=== PATIENT | male | born 1995 | race Caucasian/White ===

== ENCOUNTER 2017-03-22 12:44 | Inpatient (IN) | payer BC, OTHER ==
[~2017-03-22] VITALS: Ht 175.3 cm; Wt 79.4 kg
[2017-03-22] MEDS ORDERED: LORAZEPAM 2 MG/1 ML VIAL IM PRN (16:30)
[2017-03-22] MEDS ORDERED: DIAZEPAM 10 MG TABLET PO PRN ×2 (16:30)
[2017-03-22] MEDS ORDERED: BUPRENORPHINE HCL 2 MG TAB.SUBL SL PRN (16:30)
[2017-03-22] MEDS ORDERED: ACETAMINOPHEN 325 MG TABLET PO PRN (16:30)
[2017-03-22] MEDS ORDERED: THIAMINE HCL 200 MG/2 ML VIAL IM ONE (16:30)
[2017-03-22] MEDS ORDERED: LOPERAMIDE HCL 2 MG CAPSULE PO PRN ×2 (16:30)
[2017-03-22] MEDS ORDERED: DICYCLOMINE HCL 20 MG TABLET PO PRN (16:30)
[2017-03-22] MEDS ORDERED: MAG HYDROX/AL HYDROX/SIMETH 30 ML LIQUID UDC PO PRN (16:30)
[2017-03-22] MEDS ORDERED: MIRALAX 17 GM POWD.PACK PO PRN (16:30)
[2017-03-22] MEDS ORDERED: IBUPROFEN 600 MG TABLET PO PRN (16:30)
[2017-03-22] MEDS ORDERED: MAGNESIUM HYDROXIDE 30 ML LIQUID UDC PO PRN (16:30)
[2017-03-22] MEDS ORDERED: DIAZEPAM 5 MG TABLET PO PRN (16:30)
[2017-03-22 17:01] VITALS: BP 120/77
--- NOTE | 2017-03-22 17:02 | NUR ---
Intake assessment Pt was seen in intake office, pt VS are stable, pt is AxOx4, pt is cleared to be taken up to unit. Pt has already been seen by Dr Marks, admissions orders have been placed.
--- NOTE | 2017-03-22 17:20 | NUR ---
Admission Note Admission note Pt is being admitted for benzo and ETOH dependence, crack and opiate abuse. Body search and luggage search completed, no contraband found. Pt ambulated on to unit with [employer], skin check completed, pt noted to have a closed large scabbed area to right forearm. Pt noted to stand 5'9'' tall and weighs 175 pounds. Educated regarding rules and policies on the unit, pt verbalized his understanding. Pt is on a regular diet, full code, allergic to Haldol. Pt VS upon admission are: BP: 120/70 HR 84 T: 97.6 SpO2 97% on RA. Pt has no complaints of pain. COWS of 9 CIWA of 16. Pt states that he has a PMH of anxiety, depression, and PTSD. Pt states that he has a psychiatrist and PCP but he does not know their names, pt states that he does not like to take psychiatric medications because they cause him to have suicidal thoughts. Pt denies any SI/HI at this time. Pt states that he has had two seizures from withdrawal, last one being about 3 years ago. Pt agrees to HIV testing and would like the pneumococcal vaccine in a few days, orders entered. Pt uses the following substances: ETOH- either 20 beers or a fifth, 750ml of vodka daily for "several months", last drank 4 beers on 03/22/17 in the morning. Benzo's: klonopin-30mg PO daily for "several months", last use 5mg PO 03/22/17, diclazepam- 100mg PO "every few days" x "several months" last use "a few days ago" . Crack- Pt states that he uses it "when available, about 3-4 times a week" unknown amounts, last used "a few days ago". Pt states that he uses via oral inhalation. Heroin- - Pt states that he uses it "when available, about 3-4 times a week" unknown amounts, last used "a few days ago". Pt states that he uses it via oral inhalation. Pt states that he has a history of uses the previous substances via IV use, but states that he hasn't been able to obtain needles. Pt states that this is his 7th time is detox and does not remember dates but has been to: [facility] twice, [facility] x 2 and then [facility]. States he relapsed immediately after his last detox "several months ago". Pt states that he was evicted from his apartment and that is his main motivation to seek treatment, states that he needs to "get clean". Pt requested to have his home acne cream available to him for when he is here, Dr Marks notified, stated ok for pt to use TID PRN, orders entered, MD unable to enter orders. Dr Marks aware of CIWA of 18. NNO. Pt oriented to unit, pt has no further questions at this time, will administer medications per MD order and continue to monitor pt. Pt is scheduled to start a phenobarbital taper today and subutex taper on 03/23/17.
[2017-03-22] MEDS: PHENOBARBITAL 60 MG TABLET PO SCH ×2 (17:45→21:08)
[2017-03-22 18:05] LABS: BASOPHILS % (AUTO) 0.3 % (0.0-2.0); EOSINOPHILS # (AUTO) 0.2 K/uL (0.0-0.7); EOSINOPHILS % (AUTO) 3.4 % (0.0-7.0); HEMATOCRIT 42.2 % (40-50); HEMOGLOBIN 14.1 G/DL (14.0-18.0); LYMPHOCYTES # (AUTO) 2.3 K/UL (0.8-4.8); LYMPHOCYTES % (AUTO) 39.4 % (20.5-51.5); MEAN CORPUSCULAR HEMOGLOBIN 29.3 UUG (27.0-31.0); MEAN CORPUSCULAR HGB CONC 34 g/dL (32.0-37.0); MEAN CORPUSCULAR VOLUME 87.6 FL (82.0-92.0); MONOCYTES # (AUTO) 0.5 K/UL (0.1-1.30); NEUTROPHILS # (AUTO) 2.9 K/UL (1.8-8.9); NEUTROPHILS % (AUTO) 47.9 % (38.5-71.5); PLATELET COUNT (AUTO) 276 K/UL (150-450); RED BLOOD CELL COUNT(AUTO) 4.82 MIL/UL (4.7-6.1); WHITE BLOOD COUNT (AUTO) 5.9 K/UL (4.0-11.2)
[2017-03-22] MEDS ORDERED: HOME MED MISCELLANEOUS TP PRN (18:15)
[2017-03-22 18:17] LABS: ALANINE AMINOTRANSFERASE 38 U/L (16-63); ALKALINE PHOSPHATASE 85 U/L (50-136); AMYLASE 36 U/L (25-115); ASPARTATE AMINOTRANSFERASE 36 U/L (15-37); BILIRUBIN,TOTAL 0.8 mg/dL (0.2-1.0); CARBON DIOXIDE 31 mmol/L (21-32); CHLORIDE 100 mmol/L (98-107); GLUCOSE 121 mg/dL (74-106); LIPASE 122 U/L (73-393); MAGNESIUM 2.1 mg/dL (1.8-2.4); POTASSIUM 4.1 mmol/L (3.5-5.1); TOTAL PROTEIN, SERUM 8.1 g/dL (6.4-8.2); UREA NITROGEN, BLOOD 15 mg/dL (7-18)
[2017-03-22 18:25] LABS: *AMPHETAMINE, URINE NEGATIVE (NEGATIVE); *BARBITURATE, URINE NEGATIVE (NEGATIVE); *CANNABINOID, URINE POSITIVE (NEGATIVE); *COCCAINE, URINE NEGATIVE (NEGATIVE); *OPIATE, URINE NEGATIVE (NEGATIVE); *PHENCYCLIDINE SCREEN,URINE NEGATIVE (NEGATIVE)
[2017-03-22] MEDS ORDERED: PATIENT MAY USE OWN MED- MD OK TOP PRN (18:45)
--- NOTE | 2017-03-22 19:10 | NUR ---
End of shift note SBAR report given to nurse. Pt was admitted for benzo dependence, ETOH dependence, opiate and stimulant abuse. Pt has a PMHx of anxiety, depression, PTSD. Pt is allergic to haldol, on a regular diet and is a full code. Pt has started his 7 day phenobarbital taper, and is scheduled to begin a 4 day subutex taper on 03/23/17. Pt also has PRN subutex and PRN valium available if needed to manage his s/s of withdrawal. All needs addressed at this time.
[2017-03-22 19:11] LABS: ETHANOL < 3 MG/DL (0-0)
[2017-03-22 19:15] LABS: THYROID STIMULATING HORMONE 4.348 mIU/mL (0.358-3.740)
--- NOTE | 2017-03-22 19:15 | NUR ---
Start of Shift Patient Received. Patient is in his room sleeping. Breathing even and non labored. Patient is arousable to verbal stimuli. Patient is a 21 year old amle, admitted 03/22/17 for Benzo and ETOH Dependence, under the care of Dr. Marks. Patient is currently placed on a 7 day Phenobarbital taper and a 4 day Subutex taper. Patient verbalizes allergies to Haldol, wishes to be full code, following a regular diet, placed on fall and seizure precautions. Skin is noted with large scab to Right forearm. Per endorsement, patient was given Phenobarbital 60mg for CIWA of 18. COWS of 9 noted upon admission. Will continue plan of care as ordered.
[2017-03-22 21:02] VITALS: BP 114/65
[2017-03-22] MEDS: GABAPENTIN 300 MG CAPSULE PO SCH (21:07)
[2017-03-22 23:28] VITALS: BP 114/61
[2017-03-22] MEDS: diphenhydrAMINE 50 MG CAPSULE PO PRN (23:32)
--- NOTE | 2017-03-22 23:35 | NUR ---
PRN Medication Administration Patient noted verbalizing increased nausea, noted to be tremulous, and verbalizing increased anxiety, resulting inability of falling asleep. CIWA noted 5 and COWS noted to be 5. PRN Valium 5mg and Benadryl administered per orders. All needs attended to promptly. Will continue to monitor.
[2017-03-23] VITALS (8 sets, daily range): BP systolic 103–116; BP diastolic 55–76
--- NOTE | 2017-03-23 00:30 | NUR ---
PRN Medication Reassessment Patient noted in bed sleeping. breathing even and non labored. No signs of facial grimacing noted. Patient was given PRN Valium 5mg and Benadryl. Patients respirations noted to be 14. patient continues to rest with no interruptions. PRN Medications noted to bed effective. Will continue to monitor.
--- NOTE | 2017-03-23 07:02 | NUR ---
End of Shift Patient is in his room sleeping. Breathing even and non labored. Patient is arousable to verbal stimuli. Patient is a 21 year old male, admitted 03/22/17 for Benzo and ETOH Dependence, under the care of Dr. Marks. Patient is currently placed on a 7 day Phenobarbital taper and a 4 day Subutex taper. Patient was placed on Subutex take for intermitted Heroin use. Patient verbalizes allergies to Haldol, wishes to be full code, following a regular diet, placed on fall and seizure precautions. Skin is noted with large scab to Right forearm. Patient was given PRN Benadryl and Valium 5mg for a CIWA of 5 with medications noted to be effective. Patient noted to sleep a total of 8 hours. All needs attended to promptly. Will endorse to continue plan of care as ordered.
--- NOTE | 2017-03-23 08:05 | NUR ---
START OF SHIFT Received patient this morning alert and oriented x4. Patient requesting nurse and states he feels really anxious and sick. He presents with tremors, anxiety, and reports body aches. He is on 7 day Phenobarb/4 day Subutex taper. History of seizures. He is placed on seizure precautions. PRN Valium given per night nurse with effectiveness. Patient slept 8 hours. COWS 13 CIWA 13 at 0800 this morning. Will administer morning medications to help manage s/s of w/d. Encouraged patient to drink increased amounts of fluids this shift. Encouraged attendance of groups and activities. Will provide safe and supportive environment. Informed patient to notify RN if s/s of w/d worsen. Will continue to monitor.
[2017-03-23] MEDS: DOCUSATE SODIUM 250 MG CAPSULE PO SCH (08:16)
[2017-03-23] MEDS: THIAMINE HCL 100 MG TABLET PO SCH (08:16)
[2017-03-23] MEDS: FOLIC ACID 1 MG TABLET PO SCH (08:17)
[2017-03-23] MEDS: PHENOBARBITAL 60 MG TABLET PO SCH ×4 (08:17→20:05)
[2017-03-23] MEDS: BUPRENORPHINE HCL 2 MG TAB.SUBL SL SCH ×2 (08:17→20:05)
[2017-03-23] MEDS: MULTIVITAMINS,THERAPEUTIC TABLET PO SCH (08:17)
[2017-03-23] MEDS: GABAPENTIN 300 MG CAPSULE PO SCH ×3 (08:17→20:05)
[2017-03-23] MEDS ORDERED: TUBERCULIN,PURIF.PROT.DERIV. 5 TU/0.1 ML TEST ID ONE (09:00)
--- NOTE | 2017-03-23 11:01 | NUR ---
PRN MEDS PRN Valium given for CIWA 14. Patient c/o anxiety, tremors, mild hallucinations. Patient denies S/I and H/I. Doctor Kendrick notified. Will reassess.
--- NOTE | 2017-03-23 11:35 | NUR ---
PRN REASSESSMENT Patient states he feels a little less anxious now. CIWA 10. Medications slightly effective. Will administer 1300 medications at 1200. Will continue to monitor
[2017-03-23] MEDS ORDERED: DIAZEPAM 10 MG TABLET PO PRN (13:00)
[2017-03-23] MEDS ORDERED: BUPRENORPHINE HCL 2 MG TAB.SUBL SL PRN (13:00)
[2017-03-23] MEDS ORDERED: DIAZEPAM 5 MG TABLET PO PRN (13:00)
[2017-03-23] MEDS: METHOCARBAMOL 750 MG TABLET PO PRN (13:49)
--- NOTE | 2017-03-23 13:49 | NUR ---
PRN MEDICATIONS PRN Robaxin for body aches and restlessness. 7/10 on pain scale
--- NOTE | 2017-03-23 14:20 | NUR ---
PRN REASSESSMENT Patient states body aches are a 6/10. Will administer 1500 medications
--- NOTE | 2017-03-23 15:08 | NUR ---
PRN MEDICATIONS 20 mg Valium given. CIWA 20. Pt is aox4. Doctor Kendrick notified. will reassess
--- NOTE | 2017-03-23 15:50 | NUR ---
PRN REASSESSMENT Patient noted to be asleep with RR even and unlabored at 17. Bed locked and in lowest position and call jones within reach. Will reassess COWS when patient awakens. Will monitor frequently. Addendum: 03/23/17 at 1648 by NIKOLAI MASSEY RN TOMY 9
--- NOTE | 2017-03-23 18:33 | NUR ---
END OF SHIFT NOTE Patient continues on 7 day Phenobarbital/ 4 day Subutex taper and tolerating well. PRN Valium x2 and Robaxin given during shift. Patient had mild hallucinations during shift with Md aware. Last COWS 9 CIWA 4. Patient presented anxious during shift and tremulous. Patient increased fluid intake as encouraged. TB test administered during shift. All needs have been met. Safety measures in place. Will endorse to oncoming nurse
--- NOTE | 2017-03-23 19:20 | NUR ---
Start of Shift Patient Received. Patient noted in hallway on his way out to the smoking patio for smoking break. Patient is a 21 year old male, admitted 03/22/17 for Benzo and ETOH Dependence, under the care of Dr. Marks. Patient is currently placed on a 7 day Phenobarbital taper and a 4 day Subutex taper. Patient verbalizes allergies to Haldol, wishes to be full code, following a regular diet, placed on fall and seizure precautions. Skin is noted with large scab to Right forearm. Per endorsement, patient was given PRN Robaxin and Valium 10mg. Patient was noted with a CIWA of 20 and also noted with auditory hallucinations. PRN Valium 20mg. Medication noted to be effective. At 1600 patients CIWA noted to be 9 and COWS noted to 5. All needs attended to promptly. Will continue plan of care as ordered.
[2017-03-23] MEDS: diphenhydrAMINE 50 MG CAPSULE PO PRN (22:10)
[2017-03-23] MEDS: DIAZEPAM 10 MG TABLET PO PRN (22:10)
--- NOTE | 2017-03-23 22:10 | NUR ---
PRN Medication Administration Patient verbalizing increased anxiety, intermitted nausea, tremulous, and noted to be flushed in the face. Patient also noted verbalizing inability of falling asleep. Patients CIWA noted to be 12 and COWS to be 10. PRN Valium 10mg and Benadryl administered as per orders. Will continue to monitor.
--- NOTE | 2017-03-23 23:44 | NUR ---
PRN Medication Reassessment Patient noted in bed, watching TV. Breathing even and non labored. Patient was given PRN Valium 10mg and Benadryl. Patient is able to verbalize the medication was able to help with the sweats and the shakes. I dont feel as tense anymore. Im going to try and go to bed soon. PRN Valium and Benadryl noted to be effective. Will continue to monitor.
[2017-03-24 00:25] VITALS: BP 104/68
[2017-03-24 04:15] VITALS: BP 101/66
--- NOTE | 2017-03-24 07:07 | NUR ---
End of Shift Patient is in his room sleeping. Breathing even and non labored. Patient is a 21 year old male, admitted 03/22/17 for Benzo and ETOH Dependence, under the care of Dr. Marks. Patient is currently placed on a 7 day Phenobarbital taper and a 4 day Subutex taper. Patient was placed on Subutex take for intermitted Heroin use. Patient verbalizes allergies to Haldol, full code, regular diet, placed on fall and seizure precautions. Skin is noted with large scab to Right forearm. Patient was given PRN Benadryl and Valium 10mg for a CIWA of 10 with medications noted to be effective. Patient noted to sleep a total of 6 hours. All needs attended to promptly. Will endorse to continue plan of care as ordered.
[2017-03-24 08:00] VITALS: BP_SYST 113
--- NOTE | 2017-03-24 08:00 | NUR ---
START OF SHIFT Received endorsement from ongoing nurse, client is coming back from patio alert/oriented to name, place and time. Client states he feels really anxious and sick. He presents with anxious mood, flat affect, increased P 116. He is on 7 day Phenobarbital/4 day Subutex taper. History of seizures. He is placed on seizure precautions. PRN Valium given per night nurse with effectiveness. Patient slept 6 hours. COWS 9/ CIWA 7 at 0800 this morning. Will administer morning medications to help manage s/s of w/d. Encouraged patient to drink increased amounts of fluids to facilitate detox. Encouraged attendance of groups for skills to maintain sobriety. Call light within reach Will continue to monitor.
[2017-03-24] MEDS: BUPRENORPHINE HCL 2 MG TAB.SUBL SL SCH ×3 (08:15→20:33)
[2017-03-24] MEDS: THIAMINE HCL 100 MG TABLET PO SCH (08:15)
[2017-03-24] MEDS: FOLIC ACID 1 MG TABLET PO SCH (08:15)
[2017-03-24] MEDS: DOCUSATE SODIUM 250 MG CAPSULE PO SCH (08:15)
[2017-03-24] MEDS: GABAPENTIN 300 MG CAPSULE PO SCH ×3 (08:15→20:32)
[2017-03-24] MEDS: MULTIVITAMINS,THERAPEUTIC TABLET PO SCH (08:15)
[2017-03-24] MEDS: PHENOBARBITAL 60 MG TABLET PO SCH ×3 (08:15→20:32)
--- NOTE | 2017-03-24 08:49 | NUR ---
Clinician met with the client and encouraged him to attend groups. Group times were explained. Client reported that he was detoxing and didn't want to do groups in detox but said he would consider coming tomorrow.
[2017-03-24] MEDS: DIAZEPAM 10 MG TABLET PO PRN (10:07)
--- NOTE | 2017-03-24 10:07 | NUR ---
PRN Valium 10mg Client presents with anxiety, he is crying, stating "I just want to go out and start using again." Client continue to open and close fist. P 88, HR 115/67 CIWA 9. Valium 10mg PO administered. will continue to monitor.
--- NOTE | 2017-03-24 10:08 | NUR ---
PRN Miralax for constipation, encourage client to increase fluid intake and activity as tolerated to promote a BM, he verbalized understanding.
--- NOTE | 2017-03-24 11:07 | NUR ---
Reassessment PRN Valium 10mg Client is back in room from smoking, he states "I feel less anxious, but now I have some nausea." Client CIWA 5. Encourage client to try nicotine gum or patch, he decline at this time. Valium 10mg effective. Will continue to monitor.
--- NOTE | 2017-03-24 11:08 | NUR ---
Reassessment of Miralax client reports no BM at this time, will continue to monitor.
--- NOTE | 2017-03-24 11:21 | NUR ---
Dr. Marks made aware of lab value TSH 4.348
[2017-03-24 12:55] VITALS: BP 103/61
[2017-03-24] MEDS ORDERED: DIAZEPAM 10 MG TABLET PO PRN (14:00)
[2017-03-24] MEDS ORDERED: DIAZEPAM 5 MG TABLET PO PRN (14:00)
--- NOTE | 2017-03-24 14:06 | NUR ---
Client presents with behavioral issues, he pretended to take Phenobarbital 60 mg, primary nurse request client to stand up from bed, nurse checked blankets and phenobarbital 60mg tab was in between the sheets, primary removed pill and call via radio to charge nurse as witness. Primary nurse encourage compliance with taper medication, client stated, "I was just going to save it for when I needed it." Primary stayed with client 15 minutes after swallowing pill. Charge nurse notified MD and request T will do a room search.
[2017-03-24 17:00] VITALS: BP 114/64
--- NOTE | 2017-03-24 19:30 | NUR ---
END OF SHIFT Patient continues on 7 day Phenobarbital/ 4 day Subutex taper and tolerating well. PRN Valium x2 and Robaxin given during shift. Patient had mild hallucinations during shift with Md aware. Last COWS 9 CIWA 4. Patient presented anxious during shift and tremulous. Patient increased fluid intake as encouraged. TB test administered during shift. All needs have been met. Safety measures in place. Will endorse to oncoming nurse
[2017-03-24 20:00] VITALS: BP 106/64
--- NOTE | 2017-03-24 20:05 | NUR ---
START OF SHIFT Received report from day shift nurse. Pt attended a group meeting and returned to his room after. He is a 21 yo male admitted to [facility] on 03/22 for BZD, ETOH, suboxone, and opiate dependence. He is A&O x4 and ambulatory. Allergic to haldol, full code status, and on a regular diet. He has a PMH of anxiety, depression, PTSD, and seizures. On admission he reported using klonopin 30mg per day, diclazepam 100mg every few days, ETOH 20 beers or 750mL vodka per day, crack and heroin every few days, and subutex 8mg per day. Pt started a 7 day Phenobarbital taper on 03/22 and 4 day subutex taper on 03/23. Pt presents with flushed face, visible sweat, anxiety, body aches, nausea, mild tremors. He has a flat affect. Tapers due tonight. Fall and seizure precautions in place. Bed is down with call light in reach.
[2017-03-24] MEDS: ONDANSETRON ODT 4 MG TAB.RAPDIS SL PRN (20:31)
[2017-03-24] MEDS: METHOCARBAMOL 750 MG TABLET PO PRN (20:32)
[2017-03-24] MEDS: diphenhydrAMINE 50 MG CAPSULE PO PRN (20:32)
--- NOTE | 2017-03-24 20:33 | NUR ---
PRN Robaxin administration Pt c/o generalized body aches 03/16. PRN Robaxin administered. Addendum: 03/26/17 at 0326 by AVRIL GABRIEL RN Disregard note. Incorrect entry date.
--- NOTE | 2017-03-24 20:33 | NUR ---
PRN Zofran, Robaxin, and Benadryl Pt c/o nausea, body aches, bone pain, and inability to sleep. PRN Zofran, Robaxin, and Benadryl administered.
--- NOTE | 2017-03-24 21:33 | NUR ---
PRN Zofran, Robaxin, and Benadryl reassessment PRN Zofran and Robaxin effective. Pt reports relief of nausea. Body aches and bone pain are reduced to 3/10. He states that he feels tired and is going to bed after washing his face.
[2017-03-25] VITALS: BP 101/44
--- NOTE | 2017-03-25 00:40 | NUR ---
PRN Ativan, Motrin, and Zofran Pt reports feeling anxious, with nausea, headache, and inability to relax. Last used xanax last night. COWS 5 and CIWA 7. PRN Ativan, Motrin, and Zofran administered. Addendum: 03/25/17 at 0617 by AVRIL GABRIEL RN Disregard note. Incorrect patient.
--- NOTE | 2017-03-25 01:40 | NUR ---
PRN Ativan, Motrin, and Zofran reassessment PRN Ativan, Motrin, and Zofran effective. Pt is lying comfortably in bed resting with eyes closed. Respirations even and unlabored. Safety measures in place. Addendum: 03/25/17 at 0618 by AVRIL GABRIEL RN Disregard note. Incorrect patient.
[2017-03-25 04:30] VITALS: BP 108/63
[2017-03-25] MEDS: HYDROXYZINE PAMOATE 25 MG CAPSULE PO PRN (05:28)
[2017-03-25] MEDS: DIAZEPAM 10 MG TABLET PO PRN ×2 (05:28→09:59)
[2017-03-25] MEDS: ONDANSETRON ODT 4 MG TAB.RAPDIS SL PRN (05:47)
--- NOTE | 2017-03-25 05:47 | NUR ---
PRN Valium, Vistaril, and Zofran Pt woke up and is tearful, with facial flushing, and mild full body tremors. He reports that he is hearing voices and having nausea. Pt denies SI/HI. COWS 10 and CIWA 13. Provided calming reassurance. PRN Valium, Vistaril, and Zofran administered. Safety measures in place.
--- NOTE | 2017-03-25 06:47 | NUR ---
PRN Valium, Zofran, and Vistaril reassessment Pt reports relief of symptoms. He no longer is having auditory hallucinations. Nausea is relieved. He continues to have mild hand tremors. COWS 6 and CIWA 4.
--- NOTE | 2017-03-25 07:20 | NUR ---
END OF SHIFT Report provided to day shift nurse. Pt is lying in bed resting. He is a 21 yo male admitted to [facility] on 03/22 for BZD, ETOH, suboxone, and opiate dependence. He is A&O x4 and ambulatory. Allergic to haldol, full code status, and on a regular diet. He has a PMH of anxiety, depression, PTSD, and seizures. On admission he reported using klonopin 30mg per day, diclazepam 100mg every few days, ETOH 20 beers or 750mL vodka per day, crack and heroin every few days, and subutex 8mg per day. 7 day Phenobarbital taper started on 03/22 and 4 day subutex taper started on 03/23. PRN Zofran, Benadryl, and Robaxin administered before bed. He woke up early in the morning with reports of auditory hallucinations. PRN Valium and Vistaril administered. Symptoms improved. Last COWS 6 and CIWA 4. He no longer is experiencing auditory hallucination.. He drank 855mL and slept for 5 hours. Fall and seizure precautions in place. Bed is down with call light in reach.
--- NOTE | 2017-03-25 07:39 | NUR ---
START OF SHIFT NOTE patient is alert and Orientated X 4. He is laying in bed awake. Respirations even and unlabored. Patient slpet 5 hours according to night nurse. vital signs WNL. patient stated, "he was anxious last night and shaky". All safety measures in place, call light within reach, bed locked and in lowest position. WIll continue to monitor patient.
[2017-03-25 08:00] VITALS: BP 101/72
[2017-03-25] MEDS: GABAPENTIN 300 MG CAPSULE PO SCH ×3 (08:56→21:20)
[2017-03-25] MEDS: DOCUSATE SODIUM 250 MG CAPSULE PO SCH (08:56)
[2017-03-25] MEDS: THIAMINE HCL 100 MG TABLET PO SCH (08:57)
[2017-03-25] MEDS: PHENOBARBITAL 60 MG TABLET PO SCH ×4 (08:57→21:20)
[2017-03-25] MEDS: FOLIC ACID 1 MG TABLET PO SCH (08:57)
[2017-03-25] MEDS: MULTIVITAMINS,THERAPEUTIC TABLET PO SCH (08:58)
[2017-03-25] MEDS ORDERED: PNEUMOCOCCAL 23-VAL P-SAC VAC 0.5 ML VIAL IM ONE (09:00)
[2017-03-25] MEDS ORDERED: BUPRENORPHINE HCL 2 MG TAB.SUBL SL SCH (09:00)
--- NOTE | 2017-03-25 10:03 | NUR ---
PRN MEDICATION Patient expressed he has increased in anxiety. Unable to sit still. Last COWS 12. Gave 10 mg Valium. Will continue to monitor and reassess shortly.
--- NOTE | 2017-03-25 10:33 | NUR ---
PRN REASSESSMENT Patient is laying in bed sleeping. Respirations are even and unlabored. PRN Valium 10 mg shows to be effective.
[2017-03-25 12:00] VITALS: BP 102/55
[2017-03-25 14:08] LABS: HEPATITIS B SURFACE AG Negative (Negative)
[2017-03-25] MEDS: BUPRENORPHINE HCL 2 MG TAB.SUBL SL SCH ×2 (14:47→21:20)
--- NOTE | 2017-03-25 18:52 | NUR ---
END OF SHIFT NOTE Patient is a 21 year old male. Alert and orientated X4. Vitals have remained stable throughout the day. Last COWS 7 CIWA 8. Patient was given 10 mg of Valium for increased anxiety, PRN med was effective. Patient is on a phenobarb 7 day taper and 4 day Subutex taper; tolerated well. Patient has socialized around the unit today and attended group. All safety measures are in place; call light within reach, bed locked and in lowest position. All needs have been met. Will endorse to oncoming night nurse.
[2017-03-25 20:00] VITALS: BP 105/74
--- NOTE | 2017-03-25 20:05 | NUR ---
START OF SHIFT Received report from day shift nurse. Pt attended a group meeting and returned to his room after. He is a 21 yo male admitted to [facility] on 03/22 for BZD, ETOH, suboxone, and opiate dependence. He is A&O x4 and ambulatory. Allergic to haldol, full code status, and on a regular diet. He has a PMH of anxiety, depression, PTSD, and seizures. On admission he reported using klonopin 30mg per day, diclazepam 100mg every few days, ETOH 20 beers or 750mL vodka per day, crack and heroin every few days, and subutex 8mg per day. Pt started a 7 day Phenobarbital taper on 03/22 and 4 day subutex taper on 03/23. Pt presents with chills, a flat affect, flushed face, and anxiety. Pt denies visual of auditory hallucinations. He also denies SI/HI. Tapers due tonight. Fall and seizure precautions in place. Bed is down with call light in reach.
--- NOTE | 2017-03-25 20:33 | NUR ---
PRN Robaxin administration Pt c/o generalized body aches 03/16. PRN Robaxin administered.
--- NOTE | 2017-03-25 21:33 | NUR ---
PRN Robaxin reassessment PRN Robaxin effective. Pt reports relief of generalized body aches.
[2017-03-25] MEDS: TEMAZEPAM 15 MG CAPSULE PO PRN (22:47)
--- NOTE | 2017-03-25 22:48 | NUR ---
PRN Restoril administered Pt c/o inability to fall asleep and requested Restoril. Encouraged relaxation. PRN Restoril administered.
--- NOTE | 2017-03-25 23:48 | NUR ---
PRN Restoril reassessment PRN Restoril effective. Pt is lying in bed resting with eyes closed. Respirations even and unlabored. Safety measures in place.
[2017-03-26] VITALS: BP 108/62
--- NOTE | 2017-03-26 04:00 | NUR ---
0400 Vitals refused. COWS and DEANNAWA deferred Pt refused to be woken for 0400 vitals. He is lying comfortably in bed resting. Respirations even and unlabored. COWS and DEANNAWA ordered Q4HWA.
--- NOTE | 2017-03-26 07:20 | NUR ---
END OF SHIFT Report provided to day shift nurse. Pt is lying in bed resting. He is a 21 yo male admitted to [facility] on 03/22 for BZD, ETOH, suboxone, and opiate dependence. He is A&O x4 and ambulatory. Allergic to haldol, full code status, and on a regular diet. He has a PMH of anxiety, depression, PTSD, and seizures. On admission he reported using klonopin 30mg per day, diclazepam 100mg every few days, ETOH 20 beers or 750mL vodka per day, crack and heroin every few days, and subutex 8mg per day. Pt started a 7 day Phenobarbital taper on 03/22 and 4 day subutex taper on 03/23. PRN Robaxin and Restoril administered. Last COWS 4 and CIWA 3. He drank 1355mL and slept for 7 hours. Tapers due tonight. Fall and seizure precautions in place. Bed is down with call light in reach.
--- NOTE | 2017-03-26 07:50 | NUR ---
START OF SHIFT Received patient this morning alert and oriented x4. Patient just got out of the showe and states his bones hurt, but his mood is better and he feels a lot better than he has. He is on 7 day Phenobarb/4 day Subutex taper. History of seizures. He is placed on seizure precautions. PRN Restoril and Robaxin given per night nurse with effectiveness. Patient slept 7 hours. Last COWS 4 CIWA 3 per night nurse. Encouraged patient to drink increased amounts of fluids this shift. Encouraged attendance of groups and activities. Will provide safe and supportive environment. Informed patient to notify RN if s/s of w/d worsen. Will continue to monitor.
[2017-03-26 08:00] VITALS: BP 91/61
[2017-03-26] MEDS: FOLIC ACID 1 MG TABLET PO SCH (08:23)
[2017-03-26] MEDS: DOCUSATE SODIUM 250 MG CAPSULE PO SCH (08:23)
[2017-03-26] MEDS: MULTIVITAMINS,THERAPEUTIC TABLET PO SCH (08:23)
[2017-03-26] MEDS: BUPRENORPHINE HCL 2 MG TAB.SUBL SL SCH ×2 (08:23→16:05)
[2017-03-26] MEDS: GABAPENTIN 300 MG CAPSULE PO SCH ×3 (08:23→21:00)
[2017-03-26] MEDS: PHENOBARBITAL 60 MG TABLET PO SCH ×3 (08:24→21:00)
[2017-03-26] MEDS: THIAMINE HCL 100 MG TABLET PO SCH (08:24)
[2017-03-26] MEDS ORDERED: BUPRENORPHINE HCL 2 MG TAB.SUBL SL SCH (09:00)
[2017-03-26 12:00] VITALS: BP 111/70
[2017-03-26 16:00] VITALS: BP 120/62
[2017-03-26] MEDS ORDERED: MAGNESIUM CITRATE 296 ML BOTTLE PO ONE (17:30)
--- NOTE | 2017-03-26 18:43 | NUR ---
END OF SHIFT NOTE Patient continues on 7 day Phenobarbital/ 4 day Subutex taper and tolerating well. No PRNS administered during shift as detox meds are effective. Patient presents with brighter mood and congruent affect and reports feeling much better. Last COWS 5 CIWA 6. Patient attended groups and activities and socialized with peers. Patient increased fluid intake as encouraged. TB test administered during shift. All needs have been met. Safety measures in place. Will endorse to oncoming nurse. Addendum: 03/26/17 at 1904 by NIKOLAI MASSEY RN patient had successful BM after mag citrate
[2017-03-26 20:00] VITALS: BP 118/70
--- NOTE | 2017-03-26 20:05 | NUR ---
START OF SHIFT Received report from day shift nurse. Pt attended a group meeting and returned to his room after. He is a 21 yo male admitted to [facility] on 03/22 for BZD, ETOH, suboxone, and opiate dependence. He is A&O x4 and ambulatory. Allergic to haldol, full code status, and on a regular diet. He has a PMH of anxiety, depression, PTSD, and seizures. On admission he reported using klonopin 30mg per day, diclazepam 100mg every few days, ETOH 20 beers or 750mL vodka per day, crack and heroin every few days, and subutex 8mg per day. Pt was started a 7 day Phenobarbital taper on 03/22 and 4 day subutex taper on 03/23. He presents with generalized body aches, flushed face, visible sweat on the nose, and anxiety. Fall and seizure precautions in place. Bed is down with call light in reach.
[2017-03-26 22:10] VITALS: BP 106/68
[2017-03-26] MEDS: TEMAZEPAM 15 MG CAPSULE PO PRN (22:17)
--- NOTE | 2017-03-26 22:18 | NUR ---
PRN Restoril administration Pt reports inability to sleep. Encouraged non-pharmacological interventions and pt still cannot sleep. B/P 106/68, HR 98, RR 16, O2 sat 99%. PRN Restoril administered.
--- NOTE | 2017-03-26 23:18 | NUR ---
PRN Restoril reassessment PRN Restoril effective. Pt is lying in bed resting with eyes closed. Respirations even and unlabored. Safety measures in place.
[2017-03-27] VITALS: BP 122/55
--- NOTE | 2017-03-27 04:00 | NUR ---
0400 Vitals refused. 0400 COWS and CIWA deferred. Pt refused to be woken for 0400 vitals. Pt is lying comfortably in bed. Respirations even and unlabored. COWS and CIWA ordered Q4HWA. Safety measures in place.
--- NOTE | 2017-03-27 07:22 | NUR ---
END OF SHIFT Report provided to day shift nurse. Pt attended a group meeting and returned to his room after. He is a 21 yo male admitted to [facility] on 03/22 for BZD, ETOH, suboxone, and opiate dependence. He is A&O x4 and ambulatory. Allergic to haldol, full code status, and on a regular diet. He has a PMH of anxiety, depression, PTSD, and seizures. On admission he reported using klonopin 30mg per day, diclazepam 100mg every few days, ETOH 20 beers or 750mL vodka per day, crack and heroin every few days, and subutex 8mg per day. Pt was started a 7 day Phenobarbital taper on 03/22 and 4 day subutex taper on 03/23. PRN Restoril administered. Last COWS 2 and CIWA 2. He drank 1296mL and slept for 7 hours. Fall and seizure precautions in place. Bed is down with call light in reach.
--- NOTE | 2017-03-27 07:47 | NUR ---
START OF SHIFT Received patient this morning alert and oriented x4. Patient just woke up and reports feeling much better. He presents with brighter affect. He continues on 7 day Phenobarb and completed 4 day Subutex taper. History of seizures. He is placed on seizure precautions. PRN Restoril given per night nurse with effectiveness. Patient slept 7 hours. Last COWS 2 CIWA 2 per night nurse. Encouraged patient to drink increased amounts of fluids this shift. Encouraged attendance of groups and activities. Will provide safe and supportive environment. Informed patient to notify RN if s/s of w/d worsen. Will continue to monitor.
[2017-03-27 08:00] VITALS: BP 109/63
[2017-03-27] MEDS: GABAPENTIN 300 MG CAPSULE PO SCH ×3 (08:57→20:55)
[2017-03-27] MEDS: DOCUSATE SODIUM 250 MG CAPSULE PO SCH (08:57)
[2017-03-27] MEDS: FOLIC ACID 1 MG TABLET PO SCH (08:57)
[2017-03-27] MEDS: PHENOBARBITAL 60 MG TABLET PO SCH ×2 (08:57→20:55)
[2017-03-27] MEDS: THIAMINE HCL 100 MG TABLET PO SCH (08:57)
[2017-03-27] MEDS: MULTIVITAMINS,THERAPEUTIC TABLET PO SCH (08:57)
[2017-03-27] MEDS ORDERED: BUPRENORPHINE HCL 2 MG TAB.SUBL SL SCH (09:00)
[2017-03-27] MEDS ORDERED: NEOMY/BACITRA/POLYMYXIN B OINT UD PACKET TP SCH (09:00)
[2017-03-27] MEDS: NEOMY/BACITRAC/POLYMI OINT 28.35 GM TUBE TOP SCH ×2 (11:56→16:09)
[2017-03-27 12:00] VITALS: BP 104/71
[2017-03-27] MEDS: HYDROXYZINE PAMOATE 25 MG CAPSULE PO PRN (15:19)
--- NOTE | 2017-03-27 15:20 | NUR ---
PRN MEDICATIONS VISTARIL GIVEN PER PT REQUEST FOR ANXIETY. WILL REASSESS
[2017-03-27 16:00] VITALS: BP 96/54
--- NOTE | 2017-03-27 16:12 | NUR ---
PRN REASSESSMENT PATIENT SLEEPING IN BED RR EVEN AND UNLABORED 17. NO SIGNS OF DISTRESS. BED LOCKED CALL ASH IN REACH
--- NOTE | 2017-03-27 18:34 | NUR ---
END OF SHIFT NOTE Patient continues on 7 day Phenobarbital and tolerating well. He completed 4 day Subutex taper. PRN Vistaril given for c/o anxiety. Patient has abx treatment for minor wound on right forearm. Patient presents with brighter mood. He reports feeling much better. Last COWS 2 CIWA 2. Patient attended groups and activities and socialized with peers. Patient increased fluid intake as encouraged. All needs have been met. Safety measures in place. Will endorse to oncoming nurse.
--- NOTE | 2017-03-27 19:05 | NUR ---
Start of Shift Patient Received. Patient is in activities room participating in group meeting. Patient is a 21 year old male, admitted on 03/22/17 for Benzo, ETOH, and Opiate Dependence under the care of Dr. Marks. Patient received a modified 4 day Subutex taper and 7 day Phenobarbital taper. Patient has completed 4 day Subutex taper and continues on 7 day Phenobarbital taper. Patient verbalized allergies to Haldol, wishes to be full code, following a regular diet, placed on fall and seizure precautions, and skin is noted with a scab to the right forearm. No signs of infection noted. Patients past medical history noted as Anxiety, Depression, and PTSD, with history of two seizures 3 years ago. Per endorsement, patient was given PRN Vistaril for increased anxiety with medication noted to be effective. Last noted CIWA noted as 2 and COWS noted as 2. All needs attended to promptly. Will continue plan of care as ordered.
[2017-03-27 20:41] VITALS: BP 115/72
[2017-03-27] MEDS: TEMAZEPAM 15 MG CAPSULE PO PRN (21:32)
--- NOTE | 2017-03-27 21:32 | NUR ---
PRN Medication Administration Patient verbalizes inability of falling asleep. All non pharmacological interventions noted ineffective. Patient still noted not able to fall asleep. PRN Restoril administered as per order. Will continue to monitor effectiveness.
--- NOTE | 2017-03-27 22:30 | NUR ---
PRN Restoril reassessment Patient is noted in bed sleeping. Breathing even and non labored. No signs of pain or discomfort noted. Patient given PRN Restoril with medication noted to be effective. Patient respirations noted to be 14. Patient continues to sleep with no interruptions.
[2017-03-28 00:20] VITALS: BP 101/58
--- NOTE | 2017-03-28 00:59 | NUR ---
CIWA and COWS Deferred Patient noted in bed sleeping. breathing even and non labored. CIWA and COWS deferred due to orders of Q4HWA. No pain or discomfort noted. patient continues to sleep well with no interruptions noted. Will continue to monitor. Addendum: 03/28/17 at 0059 by RONNA WESTBROOK LVN Amended: Links added.
[2017-03-28 04:15] VITALS: BP 110/58
--- NOTE | 2017-03-28 04:15 | NUR ---
COWS and CIWA Deferred Patient is in bed sleeping. Breathing even and non labored. No signs of pain or discomfort noted. CIWA and COWS deferred due to Q4HWA. Patient respirations noted at 14. Will continue to monitor. Addendum: 03/28/17 at 0521 by RONNA WESTBROOK LVN Amended: Links added.
--- NOTE | 2017-03-28 07:24 | NUR ---
End of Shift Patient is in bed sleeping. Breathing even and non labored. No signs of pain or discomfort noted. Patient is a 21 year old male, admitted on 03/22/17 for Benzo, ETOH, and Opiate Dependence under the care of Dr. Marks. Patient received a modified 4 day Subutex taper and 7 day Phenobarbital taper. Patient continues on 7 day Phenobarbital taper. Patient verbalized allergies to Haldol, full code, regular diet, placed on fall and seizure precautions, and skin is noted with a scab to the right forearm. No signs of infection noted. Past medical history noted as Anxiety, Depression, and PTSD, with history of two seizures 3 years ago. Patient was given PRN Restoril and patient was noted to sleep a total of 7 hours. Last noted COWS 3 and CIWA 3. All needs attended to promptly. Will endorse to continue plan of care as ordered.
--- NOTE | 2017-03-28 07:38 | NUR ---
START OF SHIFT Received patient this morning alert and oriented x4. Patient presents with brighter mood and is awake around unit socializing with peers. He continues on 7 day Phenobarb and completed 4 day Subutex taper. History of seizures. He is placed on seizure precautions. PRN Restoril given per night nurse with effectiveness. Patient slept 7 hours. Last COWS 3 CIWA 3 per night nurse. Encouraged patient to drink increased amounts of fluids this shift. Encouraged attendance of groups and activities. Will provide safe and supportive environment. Informed patient to notify RN if s/s of w/d worsen. Will continue to monitor.
[2017-03-28 08:00] VITALS: BP 110/73
[2017-03-28] MEDS ORDERED: PHENOBARBITAL 60 MG TABLET PO SCH (09:00)
[2017-03-28] MEDS: GABAPENTIN 300 MG CAPSULE PO SCH ×3 (09:07→20:39)
[2017-03-28] MEDS: FOLIC ACID 1 MG TABLET PO SCH (09:07)
[2017-03-28] MEDS: DOCUSATE SODIUM 250 MG CAPSULE PO SCH (09:07)
[2017-03-28] MEDS: THIAMINE HCL 100 MG TABLET PO SCH (09:07)
[2017-03-28] MEDS: MULTIVITAMINS,THERAPEUTIC TABLET PO SCH (09:07)
[2017-03-28] MEDS: NEOMY/BACITRAC/POLYMI OINT 28.35 GM TUBE TOP SCH ×2 (09:08→16:22)
[2017-03-28 12:00] VITALS: BP 110/49
[2017-03-28 16:00] VITALS: BP 112/61
--- NOTE | 2017-03-28 18:21 | NUR ---
END OF SHIFT NOTE Patient completed Phenobarbital taper this shift. He completed 4 day Subutex taper. No PRNs needed during shift. Patient has abx treatment for minor wound on right forearm. Patient reports feeling better. Last COWS 1 CIWA 1. Patient attended groups and activities and socialized with peers. Patient increased fluid intake as encouraged. All needs have been met. Vitals stable. Safety measures in place. Will endorse to oncoming nurse.
--- NOTE | 2017-03-28 19:20 | NUR ---
Start of Shift Patient Received. Patient is in activities room participating in group meeting. Patient is a 21 year old male, admitted on 03/22/17 for Benzo, ETOH, and Opiate Dependence under the care of Dr. Marks. Patient has completed both tapers. Patient verbalized allergies to Haldol, full code, regular diet, placed on fall and seizure precautions, and skin is noted with a scab to the right forearm. No signs of infection noted. Per endorsement, no significant changes noted or endorsed over. Patients last noted CIWA 2 and COWS noted 2. All needs attended to promptly. Will continue plan of care as ordered.
[2017-03-28 20:06] VITALS: BP 119/77
[2017-03-28] MEDS: TEMAZEPAM 15 MG CAPSULE PO PRN (20:40)
--- NOTE | 2017-03-28 20:45 | NUR ---
PRN Medication Reassessment Patient is noted in bed sleeping. Breathing even and non labored. No signs of pain or discomfort noted. Patient given PRN Restoril and medication noted to be effective. Patient respirations noted to be 14. Patient continues to sleep with no interruptions.
[2017-03-29 00:15] VITALS: BP 110/86
--- NOTE | 2017-03-29 00:15 | NUR ---
COWS and CIWA Deferred Patient is in bed sleeping. Breathing even and non labored. No signs of pain or discomfort noted. CIWA and COWS deferred due to Q4HWA. Will continue to monitor. Addendum: 03/29/17 at 0223 by RONNA WESTBROOK LVN Amended: Links added.
[2017-03-29 04:20] VITALS: BP 112/75
--- NOTE | 2017-03-29 04:20 | NUR ---
COWS and CIWA Deferred Patient is in bed sleeping. Breathing even and non labored. No signs of pain or discomfort noted. CIWA and COWS deferred due to Q4HWA. Addendum: 03/29/17 at 0523 by RONNA WESTBROOK LVN Amended: Links added.
--- NOTE | 2017-03-29 07:08 | NUR ---
End of Shift Patient is in bed sleeping. Breathing even and non labored. No signs of pain or discomfort noted. Patient is a 21 year old male, admitted on 03/22/17 for Benzo, ETOH, and Opiate Dependence. Patient completed both tapers. Allergies to Haldol, full code, regular diet, placed on fall and seizure precautions, and skin is noted with a scab to the right forearm. No signs of infection noted. Patient was given PRN Restoril and patient was noted to sleep a total of 7 hours. Last noted COWS 2 and CIWA 2. All needs attended to promptly. Will endorse to continue plan of care as ordered.
--- NOTE | 2017-03-29 07:20 | NUR ---
Start of Shift Patient Received. Pt is a 21 year old male admitted to [facility] on 03/22/17 for Benzo, ETOH, Heroin, and Subutex detox. Pt has an allergy to Haldol, is a full code and on a regular diet. Pt on universal, fall and seizure precautions. Pt has a PMHX of anxiety, depression, PTSD and withdrawl related seizures. Pt has a scab to his right arm, healing well. Pt was provided with Restoril PRN for insomnia, which was effective as pt slept for 7 hours. Pt has completed his taper orders. Last COWS 2 and CIWA 2 recorded at 0400. Weights And Measures Sealer encountered pt in his room, A/O x4, calm and cooperative and able to make his needs known. Pt has a full affect and congruent mood. Bed in low position with wheel locks secured and call light in reach. All safety precautions in place. Will continue to monitor, support and encourage according to plan of care.
[2017-03-29] MEDS: MULTIVITAMINS,THERAPEUTIC TABLET PO SCH (08:36)
[2017-03-29] MEDS: FOLIC ACID 1 MG TABLET PO SCH (08:36)
[2017-03-29] MEDS: GABAPENTIN 300 MG CAPSULE PO SCH ×3 (08:36→20:30)
[2017-03-29] MEDS: DOCUSATE SODIUM 250 MG CAPSULE PO SCH (08:36)
[2017-03-29 08:46] VITALS: BP 110/72
[2017-03-29] MEDS: THIAMINE HCL 100 MG TABLET PO SCH (09:41)
[2017-03-29] MEDS: NEOMY/BACITRAC/POLYMI OINT 28.35 GM TUBE TOP SCH ×2 (09:42→17:00)
--- NOTE | 2017-03-29 11:12 | NUR ---
[facility] called to notify staff of positive MRSA of abscess on right buttock. notified and aware. MRSA has been added to pt instruction, central supply contacted and isolation cart in place. Will continue to monitor, support and encourage according to plan of care. Addendum: 03/29/17 at 1922 by SCOT RIVERA RN Wrong pt, please disregard
[2017-03-29 12:48] VITALS: BP 111/67
--- NOTE | 2017-03-29 15:22 | NUR ---
Therapist advised client of group times. Client said he will try to make it to afternoon group.
[2017-03-29 16:10] VITALS: BP 127/82
[2017-03-29] MEDS ORDERED: TEMAZEPAM 15 MG CAPSULE PO PRN (17:00)
[2017-03-29 17:37] LABS: *AMPHETAMINE, URINE NEGATIVE (NEGATIVE); *BARBITURATE, URINE POSITIVE (NEGATIVE); *CANNABINOID, URINE NEGATIVE (NEGATIVE); *COCCAINE, URINE NEGATIVE (NEGATIVE); *OPIATE, URINE NEGATIVE (NEGATIVE); *PHENCYCLIDINE SCREEN,URINE NEGATIVE (NEGATIVE)
[2017-03-29] MEDS ORDERED: METH-406 PO (18:54)
[2017-03-29] MEDS ORDERED: GABA-534 PO (18:54)
[2017-03-29] MEDS ORDERED: HYDR-3895 PO (18:54)
[2017-03-29] MEDS ORDERED: TEMA15CA5 PO (18:54)
--- NOTE | 2017-03-29 19:20 | NUR ---
Start of Shift Patient Received. Patient is in activities room participating in group meeting. Patient is a 21 year old male, admitted on 03/22/17 for Benzo, ETOH, and Opiate Dependence under the care of Dr. Marks. Patient has completed both tapers. Patient verbalized allergies to Haldol, full code, regular diet, placed on fall and seizure precautions, and skin is noted with a scab to the right forearm. No signs of infection noted. Per endorsement, no significant changes noted or endorsed over. Patient is set for discharge tomorrow 03/30/17. All needs attended to promptly. Will continue plan of care as ordered.
--- NOTE | 2017-03-29 19:25 | NUR ---
End of Shift Report given to [facility] nurse. Pt is a 21 year old male admitted to [facility] on 03/22/17 for Benzo, ETOH, Heroin, and Subutex detox. Pt has an allergy to Haldol, is a full code and on a regular diet. Pt on universal, fall and seizure precautions. Pt has a PMHX of anxiety, depression, PTSD and withdrawl related seizures. Pt has a scab to his right arm, healing well. Pt did not request any PRNs today. Pt has completed his taper orders. Last COWS 0 and CIWA 0 recorded at 1600.Pt in his room, A/O x4, calm and cooperative and able to make his needs known. Pt is preparing to discharge tomorrow and is upbeat and pleasant. Pt has a full affect and congruent mood. Bed in low position with wheel locks secured and call light in reach. All safety precautions in place. Will continue to monitor, support and encourage according to plan of care.
[2017-03-29 20:16] VITALS: BP 103/70
--- NOTE | 2017-03-29 20:40 | NUR ---
PRN Medication Reassessment Patient is noted in bed sleeping. Breathing even and non labored. No signs of pain or discomfort noted. Patient given PRN Restoril and medication noted to be effective. Patient respirations noted to be 14. Patient continues to sleep with no interruptions. Addendum: 03/30/17 at 0304 by RONNA WESTBROOK LVN ENTERED IN WRONG TIME
[2017-03-30 00:45] VITALS: BP 104/71
--- NOTE | 2017-03-30 00:45 | NUR ---
COWS and CIWA Deferred Patient is in bed sleeping. Breathing even and non labored. No signs of pain or discomfort noted. CIWA and COWS deferred due to Q4HWA. Will continue to monitor. Addendum: 03/30/17 at 0102 by RONNA WESTBROOK LVN Amended: Links added.
[2017-03-30 04:22] VITALS: BP 107/72
--- NOTE | 2017-03-30 04:42 | NUR ---
COWS and CIWA Deferred Patient is in bed sleeping. Breathing even and non labored. No signs of pain or discomfort noted. CIWA and COWS deferred due to Q4HWA. Will continue to monitor. Addendum: 03/30/17 at 0502 by RONNA WESTBROOK LVN Amended: Links added.
--- NOTE | 2017-03-30 07:16 | NUR ---
End of Shift Patient is in bed sleeping. Breathing even and non labored. No signs of pain or discomfort noted. Patient is a 21 year old male, admitted on 03/22/17 for Benzo, ETOH, and Opiate Dependence. Patient completed both tapers. Allergies to Haldol, full code, regular diet, placed on fall and seizure precautions, and skin is noted with a scab to the right forearm. No signs of infection noted. Patient is set for discharge today 03/30/17. Patient was given PRN Restoril and patient was noted to sleep a total of 8 hours. Last noted COWS 2 and CIWA 2. All needs attended to promptly. Will endorse to continue plan of care as ordered.
--- NOTE | 2017-03-30 07:30 | NUR ---
Start of Shift Patient Received. Pt is a 21 year old male admitted to [facility] on 03/22/17 for Benzo, ETOH, Heroin, and Subutex detox. Pt has an allergy to Haldol, is a full code and on a regular diet. Pt on universal, fall and seizure precautions. Pt has a PMHX of anxiety, depression, PTSD and withdrawl related seizures. Pt has a scab to his right arm, healing well. Pt was provided with Restoril PRN for insomnia, which was effective as pt slept for 8 hours. Last COWS 2 and CIWA 1. Automatic Embroidery Machine Tender encountered pt in hallway A/O x4, calm and cooperative and able to make his needs known. Pt has a full affect and congruent mood. Pt is scheduled for discharge today and is anxious about leaving, but feels like it is a good opportunity. Bed in low position with wheel locks secured and call light in reach. All safety precautions in place. Will continue to monitor, support and encourage according to plan of care.
[2017-03-30 08:17] VITALS: BP 121/58
--- NOTE | 2017-03-30 09:15 | NUR ---
Discharge Note Pt is calm , cooperative and hopeful for the future, with some anxiety r/t starting the recovery process. Pt is A/O x4, skin intact. Currently denies any HI/SI or A/VH. All discharge instructions and medication education provided. Pt provided with discharge medication prescriptions. Pt denies any further comments, questions or concerns. Pts last CIWA 1 and COWS 2 were directly related to his anxiety. Pt left the facility with all belongings including his 1 medication from home that was returned to pt's bag from med room cassette. MD and staff aware of pt's discharge.
== END 2017-03-30 09:15 | disposition home or self-care (01) | DRG 895 ==
LOC: SRC 15:50
PROVIDERS: ADMIT Internal Medicine; ATTEND Internal Medicine
PROC: HZ2ZZZZ Detoxification Services for Substance Abuse Treatment (ICD-10-PCS; principal; 2017-03-22)
PROC: HZ31ZZZ Individual Counseling for Substance Abuse Treatment, Behavioral (ICD-10-PCS; 2017-03-24)
PROC: HZ41ZZZ Group Counseling for Substance Abuse Treatment, Behavioral (ICD-10-PCS; 2017-03-24)
DX: F10.230 Alcohol dependence with withdrawal, uncomplicated (principal); F13.230 Sedative, hypnotic or anxiolytic dependence with withdrawal, uncomplicated; Y90.9 Presence of alcohol in blood, level not specified; E07.81 Sick-euthyroid syndrome; Z82.49 Family history of ischemic heart disease and other diseases of the circulatory system; Z59.0 Homelessness; Z81.8 Family history of other mental and behavioral disorders; G47.00 Insomnia, unspecified; F11.23 Opioid dependence with withdrawal; F43.10 Post-traumatic stress disorder, unspecified; F41.0 Panic disorder [episodic paroxysmal anxiety]; F14.90 Cocaine use, unspecified, uncomplicated; Z87.891 Personal history of nicotine dependence; K59.00 Constipation, unspecified; S50.811D Abrasion of right forearm, subsequent encounter; X58.XXXD Exposure to other specified factors, subsequent encounter
CPT/HCPCS: 36415; 70030-TC; 80307; 80346; 80349; 83690; 83735; 84443; 85025; 86580; 86592; 86705; 86803; 87340; 87806; G0480; J3411; J8499; Q0162; Q0163